=== PATIENT | female | born 1970 | race Caucasian/White ===

== ENCOUNTER 2022-12-20 08:53 | Emergency (ER) | payer OTHER ==
[2022-12-20 09:09] VITALS: BP 121/59; PULSE 68; RESP 18; TEMP 98.1; BMI 19.1
== END 2022-12-20 10:40 | disposition home or self-care (01) ==
LOC: JERFT 08:53
DX: H57.89 Other specified disorders of eye and adnexa (principal); R21 Rash and other nonspecific skin eruption; T78.40XA Allergy, unspecified, initial encounter
CPT/HCPCS: 99283-25